=== PATIENT | female | born 1965 | race Caucasian/White ===

== ENCOUNTER 2018-08-22 18:09 | Emergency (ER) | payer MEDICAID ==
[~2018-08-22] VITALS: Ht 167.6 cm; Wt 64.3 kg
[2018-08-22 18:31] VITALS: BP 135/85
== END 2018-08-22 19:36 | disposition home or self-care (01) ==
LOC: ED 19:20
DX: J01.00 Acute maxillary sinusitis, unspecified (principal)
CPT/HCPCS: 99283